=== PATIENT | female | born 1990 | race Caucasian/White ===

== ENCOUNTER 2021-06-08 13:04 | Emergency (ER) | payer OTHER ==
[~2021-06-08] VITALS: Ht 154.9 cm; Wt 100.0 kg
--- NOTE | 2021-06-08 14:18 | PHYS DOC ---
General Adult EDM: Chief Complaint: SHORTNESS OF BREATH HPI: HPI: Patient is a 31 year old female who presents with Thursday began having shortness of breath, cough, nasal congestion and was diagnosed with Covid on Thursday. Patient states that she is here today because her symptoms are worsening she still wheezing. States she last took NyQuil last night. She states she has not taken anything today. She states she has some slight diarrhea. Patient states she did lose her taste and smell today. She denies nausea, vomiting, dizziness, syncope, abdominal pain, chest pain, vision change, numbness or tingling, focal weakness, urinary symptoms, back pain. Patient rates her total discomfort at this time an 8 out of 10. She denies smoking. She takes control and Ilda-D for seasonal allergies. Review of Systems: Review of Systems: Constitutional: Denies fever or +chills. [] Eyes: Denies change in visual acuity. [] HENT: + nasal congestion or denies sore throat. [] Respiratory: + cough or +shortness of breath. [] Cardiovascular: Denies chest pain or edema. [] GI: Denies abdominal pain, nausea, vomiting, bloody stools or + intermittent diarrhea. [] : Denies dysuria. [] Musculoskeletal: Denies back pain or joint pain. [] Integument: Denies rash. [] Neurologic: Denies headache, focal weakness or sensory changes. [] Endocrine: Denies polyuria or polydipsia. [] Lymphatic: Denies swollen glands. [] Psychiatric: Denies depression or anxiety. [] Heart Score: C/O Chest Pain: No Risk Factors: Risk Factors: DM, Current or recent (<one month) smoker, HTN, HLP, family history of CAD, obesity. Risk Scores: Score 0 - 3: 2.5% MACE over next 6 weeks - Discharge Home Score 4 - 6: 20.3% MACE over next 6 weeks - Admit for Clinical Observation Score 7 - 10: 72.7% MACE over next 6 weeks - Early Invasive Strategies Current Medications: Current Medications Medications (Trade) Dose Ordered Sig/Jayne Start Time Stop Time Status Last Admin Dose Admin Albuterol/ Ipratropium (Duoneb) 3 ml 1X ONCE 06/08/21 14:15 06/08/21 14:16 UNV Methylprednisolone Sodium Succinate (SOLU-Medrol 125MG VIAL) 125 mg 1X ONCE 06/08/21 14:15 06/08/21 14:16 UNV Physical Exam: PE: Constitutional: Well developed, well nourished, no acute distress, non-toxic appearance. [] HENT: Normocephalic, atraumatic, bilateral external ears normal, oropharynx moist, no oral exudates, nose normal. [] Eyes: PERRLA, EOMI, conjunctiva normal, no discharge. [] Neck: Normal range of motion, no tenderness, supple, no stridor. [] Cardiovascular:Heart rate tachycardia regular rhythm, no murmur [] Lungs & Thorax: Bilateral upper breath sounds wheezing and lower diminished to auscultation [] Abdomen: Bowel sounds normal, soft, no tenderness, no masses, no pulsatile masses. [] Skin: Warm, dry, no erythema, no rash. [] Back: No tenderness, no CVA tenderness. [] Extremities: No tenderness, no cyanosis, no clubbing, ROM intact, no edema. [] Neurologic: Alert and oriented X 3, normal motor function, normal sensory function, no focal deficits noted. [] Psychologic: Affect normal, judgement normal, mood normal. [] EKG: EK and read by Dr. An is a sinus tachycardia but no STEMI Radiology/Procedures: Radiology/Procedures: [] Impression: [facility] [address] [place] [address] IMAGING REPORT Signed PATIENT: CONRADO ERNST ACCOUNT: [id number] : 1990 LOCATION: ER AGE: 31 SEX: F EXAM STATUS: REG ER ORD. PHYSICIAN: PAOLA CUEVAS APRN REASON: soa, wheezing, covid + PROCEDURE: PORTABLE CHEST 1V AP portable chest radiograph 06/08/2021 Clinical History: Shortness of breath, wheezing. Covid 19.. An AP erect portable digital radiograph of the chest was obtained. The cardiac and mediastinal silhouettes are within normal limits in size and configuration. No area of consolidation is seen. Mild peribronchial thickening is seen bilaterally. No pleural effusion or pneumothorax is noted. The osseous structures are grossly intact. IMPRESSION: No area of consolidation is seen. Electronically signed by: Saurav Case MD (06/08/2021 2:47 PM) [id number] DICTATED and SIGNED BY: SAURAV CASE MD DATE: 06/08/21 [id number] [facility] [address] [place] [address] IMAGING REPORT Signed PATIENT: CONRADO ERNST ACCOUNT: [id number] : 1990 LOCATION: ER AGE: 31 SEX: F EXAM STATUS: REG ER ORD. PHYSICIAN: PAOLA CUEVAS APRN REASON: tachycardic, tachypneic, birthcontrol use, covid+ PROCEDURE: CT ANGIOGRAPHY CHEST Exam: CT of chest with contrast INDICATION: Tachycardia, tachypnea TECHNIQUE: Sequential axial images through the chest obtained following the administration of 96 mL of Isovue-370 IV contrast. Sagittal and coronal re formatted images were reconstructed from the axial data and reviewed. Exposure: One or more of the following in the visualized dose reduction techniques were utilized for this examination: 1. Automated exposure control 2. Adjustment of the MA and/or KV according to patient size 3. Use of iterative of reconstructive technique Comparisons: Chest x-ray same day FINDINGS: Visualized portions of the thyroid are unremarkable. No enlarged mediastinal lymph nodes are identified. Heart size is normal. No pericardial effusion. Thoracic aorta has normal course and caliber. Pulmonary artery is not enlarged. No pulmonary embolus identified within the main, lobar or segmental pulmonary arteries. Airways are patent. No consolidation or pneumothorax. No suspicious lung nodules. No pleural effusion or thickening. Visualized upper abdomen is unremarkable. No suspicious osseous lesions or acute fractures. IMPRESSION: No pulmonary embolus identified within the main, lobar or segmental pulmonary arteries. Electronically signed by: Marian Urbina MD (06/08/2021 5:16 PM) [facility] DICTATED and SIGNED BY: MARIAN URBINA MD DATE: 06/08/21 [id number] Course & Med Decision Making: Course & Med Decision Making Pertinent Labs and Imaging studies reviewed. (See chart for details) COVID-19 CRITERIA: The patient was evaluated during the global COVID-19 pandemic, and that diagnosis was suspected/considered upon their initial presentation. Their evaluation, treatment and testing was consistent with current guidelines for patients who present with complaints or symptoms that may be related to COVID-19. See HPI. Alert and oriented x4. Ambulatory steady gait. Speaks in full clear sentences. Skin pink warm and dry. Auditory wheezing. Bilateral upper lobes has respiratory expiratory wheezing in lower lobes are diminished. Tachypneic. No rashes. Abdomen soft and nontender. Tachycardic. CT angio of the chest is negative. Blood work is unremarkable. Patient is stable and in no respiratory distress. Her ABG shows she is hyperventilating. She received 2 L normal saline and a DuoNeb. Patient will be sent home with a inhaler. Patient is given strict return precautions. [] Dragon Disclaimer: Dragon Disclaimer: This electronic medical record was generated, in whole or in part, using a voice recognition dictation system. COVID-19 Patient Risks: Age 65 or older: No Sign of co-morbidity: Yes Exp to person + for COVID: Yes Exp to PUI: No Travel from affected area: No Lower respiratory symptoms: Yes Fever: Yes (chills) Other: Yes (diarrhea, nasal congestion) PPE Use: Full PPE with N95 mask or PAPR: Yes Departure Departure Impression: Primary Impression: COVID-19 Disposition: 01 HOME / SELF CARE / HOMELESS Condition: STABLE Referrals: NO PCP (PCP) Patient Instructions: Cough, Adult, Fever, Adult Additional Instructions: Quarantine. Drink plenty of fluids to stay hydrated. Alternate between Tylenol and ibuprofen to help with any kind of pain or fever. If you begin having severe shortness of breath, severe chest pain or you cannot keep down fluids return to the emergency room. By a oxygen sensor finger probe to watch her oxygen saturation. If you drop below 90% on oxygen saturation you should come to the emergency room. Take [id number]-rds-[id number] medication such as DayQuil or NyQuil as they have a cough suppressant, nasal decongestant and Tylenol. You have been tested for or diagnosed with COVID-19. It is an infection caused by a new type of coronavirus. COVID-19 will cause cold-like or mild flu symptoms in most. It can cause more severe symptoms like problems breathing in some. There is no treatment for COVID-19. The body will clear the infection over time. Self-care will help to ease discomfort. Steps to Take: Self-Care Rest as needed. Healthy habits may help you feel better. Steps include: Choose healthy foods including fruits and vegetables. Drink water throughout the day. Get plenty of sleep each night. If you smoke, try to quit. It may ease breathing. Avoid alcohol. Keep Others Healthy The virus can spread to others. Droplets are released every time you sneeze or cough. The droplets can get into the mouth, nose, or eyes of people near you and lead to infection. To lower the chances of spreading COVID-19 to others: Stay at home until your doctor has said it is safe to leave. If you tested positive this will mean staying isolated until both of the following are true: At least 7 days have passed since the start of illness. You are free of fever for at least 72 hours without the use of medicine. During this time: - Avoid public areas, events, or transportation. Do not return to work or school until your doctor has said it is safe to do so. - Call ahead if you need to go to a medical center. Let them know you may have COVID-19. It will help them guide you where to go. They may also ask you to wear a facemask when you come to the office. - If you call for emergency medical services, let them know you may have COVID- 19. While at home: - Try to avoid close contact with others. Stay about 6 feet away. - If possible, spend most of your time in a separate room from others. - Use a face mask if you will be in close contact with others such as sharing a room or vehicle. - Have someone wipe down common surfaces in the home. Use household vascular ultrasound technician every day on areas like doorknobs, counters, or sinks. - Cough or sneeze into a tissue. Throw the tissue away right after use. If a tissue is not available, cough or sneeze into your elbow. - Wash your hands often. Wash them after sneezing or coughing. Use soap and water and wash for at least 20 seconds. Alcohol based hand mold sheet cleaner can be used if soap and water is not available. - Do not prepare food for others. Avoid sharing personal items like forks, spoons, or toothbrushes. - Avoid close contact with pets while you are sick. There is no evidence of the virus passing to pets. This is a safety step until more is known about this virus. Isolation can be frustrating. Social interaction can help. Keep in touch with friends and family through phone and tech options. You can still interact with others in your home, just keep a safe distance of about 6 feet. Follow-up: Your doctors office will check in with you to see if there are any changes in your health. You may be asked to keep track of symptoms to share with them. They will also let you know when you are clear to be in public again. Problems to Look Out For: Contact your doctor if your recovery is not going as you expect. Get emergency care if you have problems such as: - Trouble breathing - Nonstop chest pain or pressure - Changes in awareness, confusion, or problems waking - Lips or face have bluish color - Worsening of symptoms If you think you have an emergency, call for emergency medical services right away. As taken from [facility] Albuterol Sulfate (PROAIR HFA INHALER) 8.5 Gm Hfa.aer.ad 1-2 PUFF INH PRN Q6HRS PRN for SHORTNESS OF BREATH, #1 EACH 0 Refills Prov: PAOLA CUEVAS APRN 06/08/21 PAOLA CUEVAS APRN Jun 08, 2021 14:18
[2021-06-08] MEDS: IV NORMAL SALINE 1000ML BAG 1,000 ML IV ONE ×2 (14:25→17:18)
[2021-06-08] MEDS: methylPREDNISolone SOD SUCC PF 125 MG/2 ML VIAL. IV ONE (14:28)
[2021-06-08] MEDS: IPRATRPIUM/ALBUTEROL 0.5/2.5MG 3 ML NEBU. NEB ONE (14:40)
--- NOTE | 2021-06-08 14:50 | RAD ---
AP portable chest radiograph 06/08/2021 Clinical History: Shortness of breath, wheezing. Covid 19.. An AP erect portable digital radiograph of the chest was obtained. The cardiac and mediastinal silhouettes are within normal limits in size and configuration. No area o f consolidation is seen. Mild peribronchial thickening is seen bilaterally. No pleural effusion or pn eumothorax is noted. The osseous structures are grossly intact. IMPRESSION: No area of consolidation is seen. Electronically signed by: Saurav Case MD (06/08/2021 2:47 PM) [id number]
[2021-06-08 15:12] LABS: BASO % 1 % (0-3); EOS # 0.2 x10^3/uL (0.0-0.7); EOS % 3 % (0-3); HEMATOCRIT 38.6 % (36.0-47.0); HEMOGLOBIN 13.2 g/dL (12.0-15.5); LYMPH # 1.5 x10^3/uL (1.0-4.8); LYMPH % 20 % (24-48); MEAN CORPUSCULAR HEMOGLOBIN 28 pg (25-35); MEAN CORPUSCULAR HGB CONC 34 g/dL (31-37); MEAN CORPUSCULAR VOLUME 81 fL (79-100); MONO # 0.6 x10^3/uL (0.0-1.1); MONO % 9 % (0-9); NEUT % 68 % (31-73); PLATELET COUNT 322 x10^3/uL (140-400); RED BLOOD COUNT 4.76 x10^6/uL (3.50-5.40); RED CELL DISTRIBUTION WIDTH 14.7 % (11.5-14.5); WHITE BLOOD COUNT 7.3 x10^3/uL (4.0-11.0)
[2021-06-08 15:24] LABS: CALCIUM 8.5 mg/dL (8.5-10.1); CREATININE 0.5 mg/dL (0.6-1.0); GFR 143.9; POTASSIUM 4.2 mmol/L (3.5-5.1)
[2021-06-08 15:30] LABS: ALBUMIN 3.2 g/dL (3.4-5.0); ALBUMIN/GLOBULIN RATIO 0.8 (1.0-1.7); TOTAL BILIRUBIN 0.2 mg/dL (0.2-1.0); TOTAL PROTEIN 7.2 g/dL (6.4-8.2)
[2021-06-08 15:32] LABS: BILIRUBIN,URINE NEGATIVE (NEG); CLARITY,URINE CLEAR; COLOR,URINE YELLOW; NITRITE,URINE NEGATIVE (NEG); PROTEIN,URINE NEGATIVE (NEG-TRACE); UROBILINOGEN,URINE 0.2 mg/dL (0.2 mg/dL)
[2021-06-08 15:45] LABS: BACTERIA,URINE MODERATE /HPF (0-FEW)
--- NOTE | 2021-06-08 16:31 | EKG ---
[facility] [address] [place] [address] Test Date: 2021-06-08 Test Time: 15:17:23 Pat Name: CONRADO ERNST Department: Room: Gender: F Tumbler Tender: : 1990 Requested By: PAOLA CUEVAS Order Number: [id number] Reading MD: Jair Yarbrough Measurements Intervals [place] Rate: 106 P: -24 IL: 120 QRS: 5 QRSD: 82 T: 17 QT: 342 QTc: 456 Interpretive Statements SINUS TACHYCARDIA LEFT ATRIAL ABNORMALITY Electronically Signed On 06-15-2021 17:49:51 CLINICAL ACCOUNT MANAGER by Jair Yarbrough
--- NOTE | 2021-06-08 17:19 | RAD ---
Exam: CT of chest with contrast INDICATION: Tachycardia, tachypnea TECHNIQUE: Sequential axial images through the chest obtained following the administration of 96 mL o f Isovue-370 IV contrast. Sagittal and coronal reformatted images were reconstructed from the axial d anni and reviewed. Exposure: One or more of the following in the visualized dose reduction techniques were utilized for this examination: 1. Automated exposure control 2. Adjustment of the MA and/or KV according to patient size 3. Use of iterative of reconstructive technique Comparisons: Chest x-ray same day FINDINGS: Visualized portions of the thyroid are unremarkable. No enlarged mediastinal lymph nodes are identifi ed. Heart size is normal. No pericardial effusion. Thoracic aorta has normal course and caliber. Pulmonar y artery is not enlarged. No pulmonary embolus identified within the main, lobar or segmental pulmona ry arteries. Airways are patent. No consolidation or pneumothorax. No suspicious lung nodules. No pleural effusion or thickening. Visualized upper abdomen is unremarkable. No suspicious osseous lesions or acute fractures. IMPRESSION: No pulmonary embolus identified within the main, lobar or segmental pulmonary arteries. Electronically signed by: Marian iGles MD (06/08/2021 5:16 PM) [facility]
[2021-06-08] MEDS: IOHEXOL 350 MG/ML 100 ML VIAL. IV ONE (17:21)
[2021-06-08 17:27] LABS: BASE EXCESS COOX -5 mmol/L (-3-3); HCO3 COOX 17 mmol/L (21-28); METHEMOGLOBIN 0.4 % (0.0-1.9); OXYHEMOGLOBIN 96.8 %; PCO2 COOX 23 mmHg (35-46); PO2 COOX 100 mmHg (85-108); SAT O2 COOX 98 % (92-99)
[2021-06-08] MEDS ORDERED: CONTRAST GIVEN. MC PRN (17:30)
[2021-06-08] MEDS ORDERED: ALBU2.5V8 INH (17:40)
[2021-06-08 18:03] VITALS: BP 115/68
== END 2021-06-08 18:35 | disposition home or self-care (01) ==
LOC: ER 13:04
DX: U07.1 COVID-19 (principal)
CPT/HCPCS: 36415; 36600; 71045; 71275; 80053; 81001; 81025; 82805; 83605; 83880; 85025; 85379; 87086; 93005; 94640; 96361; 96374; 99285; J2930; J7030; Q9967